=== PATIENT | male | born 1960 | race Caucasian/White ===

== ENCOUNTER → 2017-12-31 15:53 | Outpatient (CLI) | payer OTHER | END | disposition home or self-care (01) | LOC: D.MRI 12-28 16:00 | DX: M79.661 Pain in right lower leg (principal) ==

== ENCOUNTER → 2018-04-22 14:28 | Outpatient (CLI) | payer OTHER | END | disposition home or self-care (01) | LOC: D.MRI 10:00 | DX: M54.5 Low back pain (principal) ==